=== PATIENT | male | born 1985 | race Caucasian/White ===

== ENCOUNTER 2023-12-11 17:18 | Inpatient (IN) | payer MEDICARE, MEDICAID, SELFPAY ==
[2023-12-11 18:06] VITALS: BP 132/79; PULSE 88; RESP 20; TEMP 37.1; O2SAT 98
[2023-12-11 18:07] VITALS: BMI 35.7
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
[2023-12-11 20:00] VITALS: BP 129/88; PULSE 92; TEMP 37.2; O2SAT 95
[2023-12-12 08:00] VITALS: BP 149/73; PULSE 89; RESP 16; TEMP 36.1; O2SAT 97
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
[2023-12-12 20:00] VITALS: BP 134/82; PULSE 76; RESP 18; TEMP 36.9; O2SAT 97
[2023-12-12] MEDS: Benztropine Mesylate 0.5 MG TABLET PO (21:11)
[2023-12-12] MEDS: Clotrimazole 1 % Cream 15 GM TUBE 1 APPL TOPICAL (21:12)
[2023-12-13 09:03] VITALS: BP 132/80; PULSE 76; RESP 19; TEMP 36.2; O2SAT 97
[2023-12-13] MEDS: hydrOXYzine HCL 25 MG TABLET PO ×2 (09:35→20:23)
[2023-12-13] MEDS: Benztropine Mesylate 0.5 MG TABLET PO ×2 (09:35→20:23)
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
--- NOTE | 2023-12-13 17:54 | PC.NURSE ---
Pt choosing to remain in group room A for most of shift. Remains quiet and isolating, has not made any requests to staff and remains calm and cooperative.
[2023-12-13 19:57] VITALS: BP 138/73; PULSE 82; RESP 17; TEMP 36.9; O2SAT 99
[2023-12-13] MEDS: Trifluoperazine HCL 5 MG TABLET 20 MG PO (20:23)
[2023-12-14 08:00] VITALS: BP 132/81; PULSE 84; RESP 16; TEMP 36.4; O2SAT 99
[2023-12-14] MEDS: Benztropine Mesylate 0.5 MG TABLET PO ×2 (10:44→22:00)
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
[2023-12-14 20:00] VITALS: BP 122/86; PULSE 75; TEMP 36.5; O2SAT 98
[2023-12-14] MEDS: Trifluoperazine HCL 5 MG TABLET 20 MG PO (21:59)
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
[2023-12-15 08:00] VITALS: BP 152/84; PULSE 83; RESP 16; TEMP 36.3; O2SAT 98
[2023-12-15] MEDS: Benztropine Mesylate 0.5 MG TABLET PO ×2 (12:15→21:17)
[2023-12-15] MEDS: Trifluoperazine HCL 5 MG TABLET 20 MG PO (21:16)
[2023-12-15 21:20] VITALS: BP 114/74; PULSE 75; TEMP 36.1
[2023-12-16 08:00] VITALS: BP 147/98; PULSE 79; RESP 18; TEMP 36.8; O2SAT 98
[2023-12-16] MEDS: Benztropine Mesylate 0.5 MG TABLET PO ×2 (09:56→21:19)
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
[2023-12-16 20:00] VITALS: BP 131/79; PULSE 81; RESP 16; TEMP 36.7; O2SAT 98
[2023-12-16] MEDS: Trifluoperazine HCL 5 MG TABLET 20 MG PO (21:19)
[2023-12-16] MEDS: Clotrimazole 1 % Cream 15 GM TUBE 1 APPL TOPICAL (23:24)
[2023-12-17] MEDS: Benztropine Mesylate 0.5 MG TABLET PO ×2 (08:40→21:42)
[2023-12-17] MEDS: Clotrimazole 1 % Cream 15 GM TUBE 1 APPL TOPICAL (08:40)
[2023-12-17 09:46] VITALS: BP 136/82; PULSE 76; RESP 16; TEMP 36.4; O2SAT 97
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
[2023-12-17 20:00] VITALS: BP 133/79; PULSE 80; RESP 20; TEMP 35.9; O2SAT 98
[2023-12-17] MEDS: Trifluoperazine HCL 5 MG TABLET 20 MG PO (21:42)
[2023-12-18] MEDS: Benztropine Mesylate 0.5 MG TABLET PO ×2 (08:19→20:36)
[2023-12-18] MEDS: Clotrimazole 1 % Cream 15 GM TUBE 1 APPL TOPICAL (08:20)
[2023-12-18 08:45] VITALS: BP 117/74; PULSE 82; RESP 18; TEMP 36.4; O2SAT 97
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
[2023-12-18 20:00] VITALS: BP 132/86; PULSE 98; RESP 18; TEMP 36.3; O2SAT 97
[2023-12-18] MEDS: Trifluoperazine HCL 5 MG TABLET 20 MG PO (20:36)
[2023-12-19 08:00] VITALS: BP 119/75; PULSE 81; TEMP 36.8; O2SAT 98
[2023-12-19] MEDS: Benztropine Mesylate 0.5 MG TABLET PO ×2 (08:55→21:16)
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
[2023-12-19 20:00] VITALS: BP 124/79; PULSE 87; RESP 16; TEMP 36.7; O2SAT 96
[2023-12-19] MEDS: Clotrimazole 1 % Cream 15 GM TUBE 1 APPL TOPICAL (21:16)
[2023-12-19] MEDS: Trifluoperazine HCL 5 MG TABLET 20 MG PO (21:16)
[2023-12-20 08:00] VITALS: BP 141/87; PULSE 86; RESP 18; TEMP 37.1; O2SAT 98
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
[2023-12-20] MEDS: Benztropine Mesylate 0.5 MG TABLET PO (09:15)
== END 2023-12-20 11:09 | disposition home or self-care (01) | DRG 885 ==
PROVIDERS: Admitting Provider Psychiatry & Neurology Psychiatry; Visit Provider Psychiatry & Neurology Psychiatry
DX: F20.9 Schizophrenia, unspecified (principal); H54.61 Unqualified visual loss, right eye, normal vision left eye; B35.3 Tinea pedis; Z79.899 Other long term (current) drug therapy

== ENCOUNTER → 2023-12-11 17:18 | Outpatient (BNV) | payer MEDICAID, SELFPAY | PROVIDERS: Admitting Provider Psychiatry & Neurology Psychiatry; Visit Provider Physician Assistant | DX: Z00.00 Encounter for general adult medical examination without abnormal findings (principal) | CPT/HCPCS: 99222 ==

== ENCOUNTER → 2023-12-11 17:18 | Outpatient (BNV) | payer MEDICARE, MEDICAID, SELFPAY | PROVIDERS: Admitting Provider Psychiatry & Neurology Psychiatry; Visit Provider Psychiatry & Neurology Psychiatry | DX: F20.9 Schizophrenia, unspecified (principal); H54.7 Unspecified visual loss | CPT/HCPCS: 90792; 99231; 99232; 99239 ==

== ENCOUNTER 2025-02-16 16:34 | Inpatient (IN) | payer MEDICARE, MEDICAID, SELFPAY ==
--- OUTSIDE RECORDS SUMMARY | 2017-03-29 08:00 | XMS_ITS | Continuity of Care Document ---
Author Organization [facility] Address [address] [place] [id number] Phone Care Team Providers Care Machine Ii Trimmer Name Role Phone RenettaErik simons OD Unavailable Unavailable Procedures Procedure Date SCODI--Optic Nerve Computerized Corneal Topography 016 Advance Directives Directive Yes / No Effective Date File Name No Information Encounters Encounter Description Practice Location Reason(s) For Visit Diagnoses Date Provider Providers Copied on Encounter [facility], [address] [place] [address], [facility], tel:[phone] No Information 0 7-201 7 Renettaronak Valencia. [address] [place] [address], [id number] , . tel: [phone] Referring Provider: Gm Sanchez, [address] [place] [address], [id number] . tel:[phone] [facility], [address] [place] [address], [facility], tel:[phone] [address] [place] [address] No Information 6-201 7 Abimael Conner. [address] [place] [address], [id number] , . tel: [phone] Referring Provider: Gm Sanchez, [address] [place] [address], [id number] . tel:[phone] [facility], [address] [place] [address], [facility], tel:[phone] [place] [address] No Information 6 Abimael Conner. [facility] [place], [place], [id number] , [place]. tel: [phone] Referring Provider: Gm Sanchez, [facility] [place], [address] . tel:[phone] Family History Family Member Type Diagnosis Age At Onset No Information Payers Payer name Insurance type Covered constitution party ID Authoriza tion(s) No Information Social History Type Description Quantity Date Captured Comments Sex Male Smoking Status No Information Chief Complaint And Reason For Visit No Information Reason For Referral Reason For Referral No Information History Of Present Illness Encounter Date Complaint History Of Prese nt Illness No Information Functional Status Date Functional Assessmen t No Information Instructions Date Instruction Additional Infor mation No Information Assessments Type Assessment Date No Information Patient Care Teams Name Effective Dates (start - stop) Status Members No Information
--- NOTE | 2025-02-16 | ECG_ITS ---
Test Reason : dizziness Blood Pressure : */* mmHG Vent. Rate : 100 BPM Atrial Rate : 100 BPM P-R Int : 168 ms QRS Dur : 90 ms QT Int : 328 ms P-R-T Axes : 57 69 32 degrees QTcB Int : 423 ms Normal sinus rhythm Possible Left atrial enlargement Borderline ECG No previous ECGs available Referred By: Generic ED Physician Electronically Signed By: SHAQUILLE GRAHAM MD
--- NOTE | ~2025-02-16 | CT_ITS ---
CLINICAL HISTORY: new renal failure CT abdomen and pelvis without contrast Comparison: None provided Findings: Diffuse esophageal mural thickening, nonspecific. Hepatomegaly with steatosis Lobulated enhancing lesion in the posterior right lobe of the liver measuring 5.2 cm, may reflect a hemangioma. If clinical concern persists consider follow-up MRI. Nonobstructive less than 2 mm calculus left lower pole kidney. Distended stomach. No bowel obstruction or pneumoperitoneum. Central mesenteric fat stranding with prominent lymph nodes, suggestive of mesenteric panniculitis. Scattered colonic diverticulosis without diverticulitis or colitis. Normal appendix. Bladder is decompressed with mural thickening, nonspecific. Partially imaged subacute appearing right-sided rib fractures, should be correlated clinically. IMPRESSION: 1. Possible mesenteric panniculitis. 2. Partially imaged subacute appearing right-sided rib fractures, should be correlated clinically. 3. Nonobstructive less than 2 mm calculus left lower pole kidney. This document has been electronically signed by: Joey Sarmiento MD on 02/16/2025 19:20:55
--- NOTE | ~2025-02-16 | XR_ITS ---
CLINICAL HISTORY: sob 1 view chest x-ray Comparison: None provided Findings: The lungs are clear. Prominent cardiac silhouette. No acute fracture. IMPRESSION: 1. No acute findings. This document has been electronically signed by: Joey Sarmiento MD on 02/16/2025 20:59:45
[2025-02-16 16:40] VITALS: BP 108/80; PULSE 105; O2SAT 98
[2025-02-16 16:42] VITALS: BP 109/69; PULSE 98; RESP 18; TEMP 36.7; O2SAT 99; BMI 33.9
[2025-02-16 17:05] LABS: MANUAL DIFF FLAG NO
[2025-02-16 17:08] LABS: Hematocrit 48.5 % (42.0-52.0); Hemoglobin 16.9 g/dl (14.0-18.0); Imm Gran Abs Auto 0.23 X10*3/uL (0.00-0.03); Imm Gran Pct Auto 1.2 % (0.0-0.4); Lymphocytes Absolute Auto 2.4 X10*3/uL (1.2-4.9); Mean Corpuscular HGB Conc 34.8 g/dl (31.0-36.0); Mean Corpuscular Hemoglobin 29.8 pg (27.0-33.0); Mean Corpuscular Volume 85.4 fL (80.0-98.0); NRBC Abs Auto 0.000 X10*3/uL (0.0-0.012); NRBC Pct Auto 0.0 /100WBC (0.0-0.2); Platelet Count 247 X10*3/uL (160-400); Red Blood Count 5.68 X10*6/uL (4.60-5.80); White Blood Count 19.3 X10*3/uL (4.8-10.8)
--- NOTE | 2025-02-16 17:18 | ED.DIZZY ---
HPI - Dizziness General Chief Complaint: Dizziness Stated Complaint: HEAT EXHAUSTION Time Seen by Provider: 02/16/25 17:18 Source: patient and EMS Mode of arrival: ambulatory Limitations: no limitations History of Present Illness ED Provider: HPI Narrative: 39-year-old male who lives with his father, prior history for schizophrenia, presenting from home with reports of multiple symptoms, he states that he has been sleeping well for the past 3 weeks, has been having leg cramping, and decided to take a long walk and he states he walked into [facility] and passed out because he was just exhausted, apparently he was found on the ground at [facility] where he laid down complaining of dizziness. Patient states he has been having right upper quadrant abdominal pain for weeks, spasms for weeks, denies drug or alcohol use. He states he does have psychiatric medications but does not sound like he takes them on a regular basis, no SI or HI. He is cooperative. He also mentioned that he has had hallucinations, and feels restless and has not been able to sleep Related Data Previous Rx's ?Medication ?Instructions ?Recorded benztropine 0.5 mg tablet 0.5 mg PO BID 90 days #180 tabs 12/19/23 clotrimazole 1 % topical cream 1 appl topical BID 30 days #30 12/19/23 grams rosuvastatin 10 mg tablet 10 mg PO BEDTIME 90 days #90 tabs 12/19/23 trifluoperazine 10 mg tablet 20 mg (2 x 10 mg) PO BEDTIME 90 12/19/23 days #180 tabs Allergies Allergy/AdvReac Type Severity Reaction Status Date / Time No Known Allergies Allergy Verified 02/16/25 16:52 Review of Systems Constitutional: Constitutional: Reports as per [facility] Past Medical History Medical History Schizophrenia Blindness Blindness Social History Social History Household Members: None Housing: House Do you presently have visiting nurse or other home services: No Patient Tobacco Use Status: Never used Tobacco Tobacco use type: Cigarette e-Cigarette/Vaping Use: Never Used Advance Directives: No Advance Directives Information Provided: No service: No Sexual orientation: Straight/Heterosexual Physical Exam Exam: Exam: Gen: ?Overall well-appearing patient, sweaty, no trauma, no bruising HEENT: Reports being blind to right eye without obvious deformity Neck: Supple, no LAD CV: RRR, no obvious murmurs appreciated Resp: ?No wheezing rales rhonchi no stridor moving air well Abd: ?Bowel sounds are present, no tenderness no rebound no rigidity MSK: FROM, strength 5/5 all extremities Skin: Warm, dry, intact, Neuro: ?Alert and oriented x3, moving upper and lower extremities symmetrically, no obvious facial asymmetry noted Psych: No SI or HI, was cooperative during our discussion Vital Signs: Vital Signs: Last Vital Signs Temp 98.1 F 02/16/25 16:42 Pulse 92 02/16/25 18:05 Resp 18 02/16/25 18:05 BP 101/63 02/16/25 18:05 Pulse Ox 97 02/16/25 18:05 O2 Del Method Room Air 02/16/25 18:05 BMI result Body Mass Index 33.9 Medications Administered Discontinued Medications Generic Name Dose Route Start Last Admin Trade Name Colleen PRN Reason Stop Dose Admin Diazepam 4 mg 02/16/25 17:20 02/16/25 18:05 Diazepam 10 Mg/2 Ml Cartridge IVPUSH 02/16/25 17:21 4 mg STAT STA Administration Sodium Chloride 1,000 mls @ 999 mls/hr 02/16/25 17:30 02/16/25 18:04 Ns IV 02/16/25 18:30 999 mls/hr .Q1H1M JAYLEN Administration Ondansetron HCl 4 mg 02/16/25 17:20 02/16/25 18:05 Ondansetron Hcl 4 Mg/2 Ml Vial IVPUSH 02/16/25 17:21 4 mg ONCE ONE Administration Medical Decision Making Medical Decision Making MDM Narrative: Patient is presenting with nonspecific findings for weeks, he also decided to walk either to the hospital to a pharmacy but he made it down to [facility] and then he states that he felt so dizzy he either passed out or laying on the ground, he reports that he has been having difficulty sleeping, reported hallucinations, somewhat restless but he is conversational and cooperative. Because he has had history of psychiatric issues, reported hallucinations, we will ask crisis to evaluate him 17:57 patient has new renal failure, we will obtain imaging to make sure it is not post renal obstruction but likely dehydration and we will evaluate for rhabdomyolysis, his LFTs trop, alk phos I believe is slightly elevated which is likely a reflection of heat exhaustion including leukocytosis. He is otherwise nonfebrile. 19:50 I spoke to the patient he is feeling better, discussed with himHis workup and admission he is agreeable to the plan. Differential Diagnosis Differential Diagnoses: The differential diagnosis associated with the presentation includes (Pancreatitis, cholecystitis, hepatitis, alcohol intoxication, psychiatric issues) Admission/Observation Consideration of admission/observation: Escalation of care including admission/observation considered 2022 Emergency Medicine Coding Guide from [employer] on 02/16/2025 All calculations should be rechecked by clinician prior to use RESULT SUMMARY: 5 Estimated Level of Service Problems: Moderate (4) Risk: High (5) Data: Extensive (5) NARRATIVE MDM: This patient's problem complexity is Moderate as patient: has a new undiagnosed problem with uncertain prognosis but that could be serious. This patient's risk is High due to: overall presentation requiring evaluation for a potentially High-risk process. This patient's data complexity is Extensive due to: -multiple tests ordered/reviewed -independent interpretation of imaging or EKG INPUTS: Number and Complexity ?> 5 = 4: undiagnosed new problem, uncertain outcome (e) Risk level ?> 4 = High Tests ordered ?> 3 = >= Tests results reviewed (excluding labs) ?> 2 = 2 Prior external notes reviewed ?> 0 = 0 Assessment requiring and independent historian ?> 0 = No Independent interpretation of tests ?> 1 = Yes Discussed management/test interpretation w/external professional ?> 0 = No Lab Data MDM Lab Attestation statement: I reviewed the patient's lab results. 02/16/25 17:01 02/16/25 17:01 Labs: Lab Results 02/16/25 Range/Units 17:01 WBC 19.3 H (4.8-10.8) X10*3/uL RBC 5.68 (4.60-5.80) X10*6/uL Hgb 16.9 (14.0-18.0) g/dl Hct 48.5 (42.0-52.0) % MCV 85.4 (80.0-98.0) fL MCH 29.8 (27.0-33.0) pg MCHC 34.8 (31.0-36.0) g/dl RDW 12.7 (11.0-16.0) % Plt Count 247 (160-400) X10*3/uL MPV 10.6 (9.4-12.4) fL Immature Gran % (Auto) 1.2 H (0.0-0.4) % Neut % (Auto) 78.0 H (45-73) % Lymph % (Auto) 12.2 L (20-40) % Mcculloch % (Auto) 7.6 (2-11) % Eos % (Auto) 0.5 (0-4) % Baso % (Auto) 0.5 (0-2) % Lymph # (Auto) 2.4 (1.2-4.9) X10*3/uL Mcculloch # (Auto) 1.5 H (0.1-1.2) X10*3/uL Eos # (Auto) 0.1 (0.0-0.4) X10*3/uL Baso # (Auto) 0.1 (0.0-0.2) X10*3/uL Abs Immat Gran (auto) 0.23 H (0.00-0.03) X10*3/uL Absolute Neuts (auto) 15.1 H (2.0-8.3) x10*3/uL Absolute Nucleated RBC 0.000 (0.0-0.012) X10*3/uL Nucleated RBC % (auto) 0.0 (0.0-0.2) /100WBC Sodium 138 (135-145) mmol/L Potassium 5.3 H (3.3-5.1) mmol/L Chloride 103 (96-108) mmol/L Carbon Dioxide 22 (22-29) mmol/L Anion Gap 18 (12-20) BUN 16 (9-16) mg/dL Creatinine 2.42 H (0.5-1.4) mg/dL Estim Creat Clear Calc 52.7 Estimated GFR 30 Random Glucose 149 H (60-115) mg/dL Calcium 10.5 H (8.4-10.2) mg/dL Magnesium 2.3 (1.6-2.6) mg/dL Total Bilirubin 0.5 (0.0-1.0) mg/dL AST 53 H (5-37) U/L ALT 92 H (0-40) U/L Alkaline Phosphatase 133 H (39-117) U/L Total Creatine Kinase 1041 H (38-174) U/L Troponin I High Sens 43.5 H (<3.5-35.0) ng/L Total Protein 8.1 H (6.5-8.0) g/dL Albumin 5.2 H (3.5-5.0) g/dL Ethyl Alcohol < 10 mg/dL Independent Interpretation I performed an independent interpretation of an: EKG (100 beats per minute otherwise normal ECG without dysrhythmia, AV juan ramon blocks or ST-T changes to suspect underlying ACS, my independent interpretation) Critical Care Time Critical Care Time Critical Care Time: Yes Total Critical Care Time: 45 Attestation: Time is exclusive of separately billable procedures. Time includes: direct patient care, patient reassessment, coordination of patient care, interpretation of data (laboratory data, pulse oximetry, arterial blood gases and chest xrays), review of patient's medical records, medical consultation and documentation of patient care. Procedures excluded from critical care time: central intravenous line placement and electrocardiography. Discharge Plan Discharge Clinical Impression: Rhabdomyolysis, Heat exhaustion, Schizophrenia Patient Disposition: Admitted As Inpatient Print Language: Iranian
[2025-02-16 17:21] LABS: Alanine Aminotransferase 92 U/L (0-40); Albumin Level 5.2 g/dL (3.5-5.0); Alkaline Phosphatase 133 U/L (39-117); Anion Gap 18 (12-20); Aspartate Amino Transferase 53 U/L (5-37); Blood Urea Nitrogen 16 mg/dL (9-16); Calcium 10.5 mg/dL (8.4-10.2); Carbon Dioxide 22 mmol/L (22-29); Chloride 103 mmol/L (96-108); Creatinine Clr Calc Pharmacy 52.7; Estimated Glomerular Filt Rate 30; Potassium 5.3 mmol/L (3.3-5.1); Sodium 138 mmol/L (135-145); Total Protein 8.1 g/dL (6.5-8.0)
[2025-02-16 17:27] LABS: Troponin-I High Sensitivity 43.5 ng/L (<3.5-35.0)
[2025-02-16 18:05] VITALS: BP 101/63; PULSE 92; RESP 18; O2SAT 97
[2025-02-16] MEDS: diazePAM 10 MG/2 ML CARTRIDGE 4 MG IVPUSH (18:05)
[2025-02-16 18:17] LABS: Magnesium 2.3 mg/dL (1.6-2.6)
--- NOTE | 2025-02-16 19:08 | PC.NURSE ---
Pt coming in with EMS reporting dizziness, on arrival pt did not complain of dizziness, pt is very manic in behavior, very animated with conversation and all over the place. He is A/Ox4, reporting he has not taken any medications in a long time and reports I think I am suppose to be on some Pt given IVF/valium to help with anxiety, pt placed on monitor, IV placed. Pt brought to CT. Pt requesting ice water nonstop at this time. Awaiting results and imaging for dispo plan. Pt aware we still need a urine at this time.
--- NOTE | 2025-02-16 19:11 | PC.NURSE ---
this rn assumed care of pt, pt resting in stretcher, no acute distress noted, pt offers no complaints at this time, fluids continue to administer at this time
--- OUTSIDE RECORDS SUMMARY | 2025-02-16 19:29 | XMS_ITS | Clinical Summary ---
Author Organization [facility] Address [address] [place] [address] Care Team Providers Care Network Program Manager Name Role Phone Gabby Garcia PA-C Primary Care Provider Source Comments PLEASE NOTE, if this patient is a minor, it may be UNLAWFUL to discuss sensitive information that is contained in these records (such as FAMILY PLANNING, MENTAL HEALTH or SUBSTANCE ABUSE) with the minor patient's parent or other person without the patient's specific authorization.[facility] Allergies No known active allergies Medications benztropine (COGENTIN) 0.5 mg tabletIndications: Routine general medical examination at a health care facility,Non morbid obesity,Undifferen tiated schizophrenia ([facility]),Elevated LFTs,Lower urinary tract symptoms (LUTS) Take 1 Tablet by mouth 2 (two) times daily 180 Tablet 3 4 Active trifluoperazine (STELAZINE) 10 mg tabletIndications: Routine general medical examination at a health care facility,Non morbid obesity,Undifferen tiated schizophrenia ([facility]),Elevated LFTs,Lower urinary tract symptoms (LUTS) Take 2 Tablets by mouth nightly at bedtime 180 Tablet 3 4 Active rosuvastatin (CRESTOR) 10 mg tablet Take 1 Tablet by mouth nightly at bedtime 90 Tablet 1 4 Active Active Problems Problem Noted Date Diagnosed Date Non morbid obesity 11/24/2019 Schizophrenia ([facility]) 08/22/2016 Social History Tobacco Use Types Packs/Day Years Used Date Smoking Tobacco: Never Smokeless Tobacco: Never Alcohol Use Standard Drinks/Week Comments No 0 (1 standard drink = 0.6 oz pur e alcohol) Social Connections Answer Date Recorded Connectedness 0 04/09/2024 Financial Resource Strain Answer Date R ecorded Financial Resource Strain 0 2018 Stress Answer Date Recorded Stress 0 03/15/2019 Physical Activity Answer Date Recorded Physical Activity 0 03/15/2019 Food Insecurity Answer Date Recorded Food 0 04/17/2024 Transportation Needs Answer Date Record ed Transportation 0 03/15/2019 Housing Stability Answer Date Recorded Housing 0 03/15/2019 Safety and Environment Answer Date Marino rded Safety 0 03/15/2019 Utilities Answer Date Recorded Utilities 0 03/15/2019 Employment Answer Date Recorded Stress 0 04/09/2024 Sex and Gender Information Value Date Recorded Sex Assigned at Male 09/06/2017 11:08 AM PST Legal Sex Male 11:36 AM PDT Gender Identity Male 09/06/2017 11:08 AM PST Sexual Orientation Straight 09/06/2017 11 :08 AM PST Last Filed Vital Signs Vital Sign Reading Time Taken Comments Blood Pressure 118/80 10/09/2023 2:51 PM EDT Pulse 106 10/09/2023 2:51 PM EDT Temperature 36.8 C (98.2 F) 10/09/2023 2:51 PM EDT Respiratory Rate 18 10/09/2023 2:51 PM EDT Oxygen Saturation 98% 10/09/2023 2:51 PM EDT Inhaled Oxygen Concentration - - Weight 127.9 kg (282 lb) 10/09/2023 2:51 PM EDT Height 188 cm (6' 2.02 ) 10/09/2023 2:51 PM EDT Body Mass Index 36.19 10/09/2023 2:51 PM EDT Plan of Treatment Health Maintenance Due Date Last Done Comments Anxiety Screening 1984 Tobacco Screening 1984 Medicare Annual Wellness Visit 2002 Imm-DTaP/Tdap/Td (1 - Tdap) 2003 [id number] () 03/23/2024 022, 06/14/2022 Alcohol and Drug Screen 07/23/2024 10/14/2018, 08/22 Depression Annual Screen 07/23/2024 10/14/2018 Diabetes Screening 10/08/2024 10/09/2023, 0 10/14/2018, 09/05/2017, Additional history exists Hypertension Screening (#1) 10/08/2024 Lipid Screening 10/08/2024 10/09/2023, 08/22/2016 Imm-Influenza (#1) 2025 HIV Screening Completed 10/14/2018 Hepatitis C Screening Completed 10/14/2018 Imm-Hepatitis B Discontinued Procedures Procedure Name Priority Date/Time Associated Diagnosis Comments COMPREHENSIVE METABOLIC PANEL Routine 10/09/2023 3:20 PM EDT Routine general medical examination at a health care facility Non morbid obesity Undifferentiated schizophrenia (HCC-CMS) Elevated LFTs Lower urinary tract symptoms (LUTS) LIPID PANEL Routine 10/09/2023 3:20 PM EDT Routine general medical examination at a health care facility Non morbid obesity Undifferentiated schizophrenia (HCC-CMS) Elevated LFTs Lower urinary tract symptoms (LUTS) ANTIBODY HIV-1&HIV-2 SINGLE RESULT Routine 10/14/2018 9:35 AM EDT Routine general medical examination at a health care facility Long-term use of high-risk medication HEPATITIS A,B,C PANEL Routine 10/14/2018 9:35 AM EDT Routine general medical examination at a health care facility Long-term use of high-risk medication from Last 3 Months or Most Recently Relevant to Health Maintenance Results * (ABNORMAL) LIPID PANEL (10/09/2023 3:20 PM EDT) CHOLESTEROL, TOTAL 223(H) <200 mg/dL [facility] HDL CHOLESTEROL 33(L) > OR = 40 mg/dL [facility] TRIGLYCERIDES 598(H) <150 mg/dL [facility] Comment: If a non-fasting specimen was collected, consider repeat triglyceride testing on a fasting specimen if clinically indicated. Valdivia et al. J. of Clin. Lipidol. 2015;9:129-169. There is increased risk of pancreatitis when the triglyceride concentration is very high (> or = 500 mg/dL, especially if > or = 1000 mg/dL). Shea et al. J. of Clin. Lipidol. 2015;9:129-169. LDL-CHOLESTEROL See Note [facility] Comment: LDL cholesterol not calculated. Triglyceride levels greater than 400 mg/dL invalidate calculated LDL results. Reference range: <100 Desirable range <100 mg/dL for primary prevention; <70 mg/dL for patients with CHD or diabetic patients with > or = 2 CHD risk factors. LDL-C is now calculated using the Ilia calculation, which is a validated novel method providing better accuracy than the Friedewald equation in the estimation of LDL-C. Isac HOPKINS et al. KELSEY. 2013;310(19): 9606-7404 (http://education.[employer]/faq/ZAW750) CHOL/HDLC RATIO 6.8(H) <5.0 (calc) [facility] NON-HDL CHOLESTEROL 190(H) <130 mg/dL (calc) [facility] Comment: For patients with diabetes plus 1 major ASCVD risk factor, treating to a non-HDL-C goal of <100 mg/dL (LDL-C of <70 mg/dL) is considered a therapeutic option. Blood Blood / Unknown 10/09/2023 3 :20 PM EDT 10/09/2023 3:20 PM EDT Narrative [facility] - 10/11/2023 4:59 AM EDT FASTING:NO us Gabby Garcia PA-C LAB - BLOOD DRAW Final Resul t [facility] [address] [place] [address], [facility] [address] [place] [phone] * (ABNORMAL) COMPREHENSIVE METABOLIC PANEL (10/09/2023 3:20 PM EDT) GLUCOSE 141(H) 65 - 139 mg/dL [facility] Comment: Non-fasting reference interval UREA NITROGEN (BUN) 15 7 - 25 mg/dL [facility] CREATININE (blood) 1.04 0.60 - 1.26 mg/dL [facility] EGFR 94 > OR = 60 mL/min/1. 73m2 [facility] BUN/CREATININE RATIO SEE NOTE: [facility] Comment: Not Reported: BUN and Creatinine are within reference range. SODIUM 136 135 - 146 mmol/L [facility] POTASSIUM 4.7 3.5 - 5.3 mmol/L [facility] CHLORIDE 102 98 - 110 mmol/L [facility] CARBON DIOXIDE 26 20 - 32 mmol/L [facility] CALCIUM 9.8 8.6 - 10.3 mg/dL [employer] [facility] PROTEIN, TOTAL 6.8 6.1 - 8.1 g/dL [facility] ALBUMIN 4.7 3.6 - 5.1 g/dL [facility] GLOBULIN 2.1 1.9 - 3.7 g/dL (calc) [facility] ALBUMIN/GLOBULI N RATIO 2.2 1.0 - 2.5 (calc) [facility] BILIRUBIN, TOTAL 0.3 0.2 - 1.2 mg/dL [facility] ALKALINE PHOSPHATASE 77 36 - 130 U/L [facility] AST 26 10 - 40 U/L [facility] ALT 53(H) 9 - 46 U/L [facility] Blood Blood / Unknown 10/09/2023 3 :20 PM EDT 10/09/2023 3:20 PM EDT Narrative [facility] - 10/11/2023 4:59 AM EDT FASTING:NO us Gabby Garcia PA-C LAB - BLOOD DRAW Edited Resu lt - Final [facility] [address] [address], [facility] [address] [phone] * (ABNORMAL) HEPATITIS A,B,C PANEL (10/14/2018 9:35 AM EDT) HEPATITIS B SURFACE ANTIBODY POSITIVE(A) NEGATIVE [facility] HEPATITIS B SURFACE ANTIGEN NEGATIVE NEGATIVE [facility] Comment: Over the counter supplements containing high doses of biotin may interfere with this assay. If interference is suspected, patients shoud be retested after refraining from biotin supplements for 72 hours. HEPATITIS C VIRUS DIAGNOSTIC NEGATIVE NEGATIVE [facility] HEPATITIS A ANTIBODY TOTAL POSITIVE(A) NEGATIVE [facility] Comment: Over the counter supplements containing high doses of biotin may interfere with this assay. If interference is suspected, patients shoud be retested after refraining from biotin supplements for 72 hours. HEPATITIS B CORE ANTIBODY NEGATIVE NEGATIVE [facility] Blood specimen (specimen) Blood / Unknown 10/14/2018 9:35 AM EDT 10/14/2018 10:34 AM EDT [facility] - 10/14/2018 12:58 PM EDT [facility], a member of [address] [address] Publications Editor - Sobia Rodriguez MD [place] ID [id number] ORD# [id number] Gabby Garcia PA-C LAB - BLOOD DRAW Edited Resu lt - Final [address] [address], [place] [phone] * HIV-1 & HIV-2 ANTIBODIES (10/14/2018 9:35 AM EDT) [facility] Signature HIV 1 AND 2 ANTIBODY SCREEN NEGATIVE NEGATIVE [facility] Comment: This assay is a 4th generation assay allowing for earlier detection of HIV infection by detecting the presence of the HIV-1 p24 antigen as well as the traditional antibodies to HIV type 1 (including group O) and type 2. Use of a 4th generation assay is the current CDC recommendation for HIV screening. Blood specimen (specimen) Blood / Unknown 10/14/2018 9:35 AM EDT 10/14/2018 10:34 AM EDT [facility] - 10/14/2018 1:26 PM EDT [employer], a member of [address] [address] Publications Editor - Sobia Rodriguez MD [place] [id number] ORD# [id number] Gabby Garcia PA-C LAB - BLOOD DRAW Final Resul t [address] [address], [place] [phone] from Last 3 Months or Most Recently Relevant to Health Maintenance Insurance [place] MEDICAID Member Subscriber Plan / Payer (Ef fective 2016-Present) Name:Travis Silveira Relation to Subscriber:Self Name:Travis Silveira Payer ID:[id number] Group ID:Not on file Type:Medicaid Address: [address] [id number] MEDICARE - [place] Care Teams Network Program Manager Relationship Specialty Start Date End Date Gabby Garcia PA-C [address] [place] [phone] PCP - General Internal Medicine 02/05/23
[2025-02-16] MEDS: Dextrose 5 % and 0.45 % NaCl 1,000 ML 100 ML IVCONT (20:40)
[2025-02-16 20:42] VITALS: BP 132/80; PULSE 88; RESP 16; TEMP 36.9; O2SAT 96
--- NOTE | 2025-02-16 21:31 | PHA.MEDREC ---
Addendum entered by Sera Sims [facility] 02/16/25 21:38: REVIEWED BY PHARMACIST Original Note: Pharmacy Consult ? Medication Reconciliation Pharmacy has completed the medication reconciliation. Spoke with pt and he confirmed he is here tonight because he was taking Benztropine and Trifloperaz tablets but states he ran out of them about 1 week ago and has not been able to get them refilled so he came here to get them.
[2025-02-16 22:15] LABS: Anion Gap 16 (12-20); Blood Urea Nitrogen 18 mg/dL (9-16); Carbon Dioxide 23 mmol/L (22-29); Chloride 103 mmol/L (96-108); Creatinine Clr Calc Pharmacy 71.3; Estimated Glomerular Filt Rate 42; Potassium 4.9 mmol/L (3.3-5.1); Sodium 137 mmol/L (135-145)
[2025-02-16 22:22] LABS: Calcium 9.4 mg/dL (8.4-10.2)
[2025-02-16 22:23] LABS: Troponin-I High Sensitivity 19.8 ng/L (<3.5-35.0)
--- NOTE | 2025-02-16 23:34 | PM.IMHP ---
History of Present Illness Date of Service: 02/16/25 Attending physician on admission: Candido Moy Chief Complaint: dizziness Patient is a 39-year-old male with a past history significant for schizophrenia, who presented to the ED after being found on the ground at [facility]. The patient reports that he was feeling dizzy and lie down on the ground and was very agitated. He feels that he may have had heat exhaustion. He states he did not fall or lose consciousness or have a head strike. 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 He reports that the latter started to twist and he feels sideways down on his right side of his chest onto the ladder. He has had pain since and has been taking ibuprofen for this. He currently denies any chest pain, shortness of breath, nausea, vomiting, abdominal pain or urinary symptoms. He is feeling better since arriving to the ED and receiving IV fluids. Review of Systems Constitutional: Constitutional: Denies chills, Denies fatigue, Denies fever(s) and Denies headache(s) Eyes: Eyes: Denies change in vision ENT: Denies headache(s), Denies nasal congestion and Denies sore throat Cardiovascular: Cardiovascular: Denies chest pain, Denies rapid heart rate, Denies leg edema, Denies lightheadedness and Denies dyspnea Respiratory: Respiratory: Denies chest congestion, Denies cough, Denies dyspnea and Denies wheezing Gastrointestinal: Gastrointestinal: Denies abdominal pain, Denies diarrhea, Denies nausea and Denies vomiting Genitourinary: Genitourinary: Denies hematuria, Denies dysuria, Denies urinary frequency and Denies urinary urgency Musculoskeletal: Musculoskeletal: Denies myalgias Integumentary/Breasts: Skin/Breast: Denies rash Neurologic: Denies confusion and Denies headache(s) Psychiatric: Psychiatric: Denies confusion Endocrine: Endocrine: Denies fatigue Hematologic/Lymphatic: Hematologic/Lymphatic: Denies easy bleeding and Denies easy bruising Allergic/Immunologic: Allergic/Immunologic: Denies wheezing PMFSH Medical History Schizophrenia Blindness Blindness Functional capacity: independent ambulation Social History Household Members: None Housing: House Do you presently have visiting nurse or other home services: No Patient Tobacco Use Status: Never used Tobacco Tobacco use type: Cigarette e-Cigarette/Vaping Use: Never Used Advance Directives: No Advance Directives Information Provided: No Nutrition Risks: No Nutritional Risk service: No Sexual orientation: Straight/Heterosexual Narrative: no smoking, etoh or drug use Meds Allergies Allergy/AdvReac Type Severity Reaction Status Date / Time No Known Allergies Allergy Verified 02/16/25 16:52 Active Medications: Current Medications Acetaminophen (Acetaminophen 325 Mg Tablet) 650 mg PO Q6H PRN PRN Reason: Pain, Mild 1-3,fever,headache Benztropine Mesylate (Benztropine Mesylate 0.5 Mg Tablet) 0.5 mg PO BID [facility] Calcium Carbonate (Calcium Carbonate 750 Mg Tab.Chew) 750 mg PO Q4H PRN PRN Reason: Heartburn Enoxaparin Sodium (Enoxaparin Sodium 40 Mg/0.4 Ml Syringe) 40 mg SUBCUT Q24H [facility] Last Admin: 02/16/25 20:39 Dose: Not Given Lactated Ringer's (Lr) 1,000 mls @ 0 mls/hr IV .Q0M [facility] Dextrose/Sodium Chloride (D51/2ns) 1,000 mls @ 100 mls/hr IVCONT .Q10H [facility] Last Admin: 02/16/25 20:40 Dose: 100 mls/hr Magnesium Hydroxide (Milk Of Magnesia 30 Ml Oral.Susp) 30 ml PO DAILY PRN PRN Reason: Constipation Melatonin (Melatonin 3 Mg Tablet) 6 mg PO BEDTIME PRN PRN Reason: Insomnia Non-Formulary Medication (Trifluoperazine) 20 mg PO BEDTIME [facility] Oxycodone HCl (Oxycodone Hcl Immed Release 5 Mg Tablet) 5 mg PO Q6H PRN PRN Reason: Pain, Severe (Pain Scale 7-10) Sodium Chloride (0.9 % Sodium Chloride Flush 3 Ml Syringe) 3 ml IVFLUSH QSHIFT [facility] Physical Exam Vital Signs and Narrative: Vital Signs: Last Vital Signs Temp 98.4 F 02/16/25 20:42 Pulse 88 02/16/25 20:42 Resp 16 02/16/25 20:42 BP 132/80 02/16/25 20:42 Pulse Ox 96 02/16/25 20:42 O2 Del Method Room Air 02/16/25 20:42 BMI result Body Mass Index 33.9 General: AOx3, no acute distress Resp: CTA bilaterally CVS: S1, S2, RRR GI: +BS, NT, no distention Skin: Warm, dry Neuro: Cranial nerves II-XII grossly intact bilaterally. Motor grossly intact bilaterally Extremities: No LE edema Psych: Appropriate affect Const: General: No confusion Orientation/consciousness: No confusion Neuro: General: No confusion Results Labs 02/16/25 17:01 02/16/25 21:53 Labs: Laboratory Results - last 24 hr 02/16/25 02/16/25 17:01 21:53 MCV 85.4 MCH 29.8 MCHC 34.8 RDW 12.7 Plt Count 247 MPV 10.6 Immature Gran % (Auto) 1.2 H Neut % (Auto) 78.0 H Lymph % (Auto) 12.2 L Nance % (Auto) 7.6 Eos % (Auto) 0.5 Baso % (Auto) 0.5 Lymph # (Auto) 2.4 Nance # (Auto) 1.5 H Eos # (Auto) 0.1 Baso # (Auto) 0.1 Abs Immat Gran (auto) 0.23 H Absolute Neuts (auto) 15.1 H Absolute Nucleated RBC 0.000 Nucleated RBC % (auto) 0.0 Anion Gap 18 16 Estim Creat Clear Calc 52.7 71.3 Estimated GFR 30 42 Random Glucose 149 H 122 H Calcium 10.5 H 9.4 D Magnesium 2.3 Total Bilirubin 0.5 AST 53 H ALT 92 H Alkaline Phosphatase 133 H Total Creatine Kinase 1041 H Total Protein 8.1 H Albumin 5.2 H Ethyl Alcohol < 10 Assessment and Plan (1) Rhabdomyolysis: Qualifiers: Encounter type: initial encounter Status: Acute (2) FREIDA (acute kidney injury): Status: Acute (3) Rib fractures: Status: Acute (4) Elevated troponin: Status: Acute (5) Schizophrenia: Status: Acute (6) Class 1 obesity: Status: Acute Plan Patient is a 39-year-old male with a past history significant for schizophrenia, who presented to the ED after being found on the ground at [facility]. The patient reports that he was feeling dizzy and lie down on the ground and was very agitated. rhabdo/FREIDA - Cr 2.42 - CPK 1041 - WBC 19.3, vital stable, no infectious sx, reactive - CXR negative - A/P CT with possible mesenteric panniculitis. Personally images subacute appearing right-sided rib fractures - ibuprofen from rib fx's likely contributing to FREIDA as well as dehydration from working in the heat - received NS 1L in ED, continue D5 1/2NS 100 ml/hr - repeat BMP and CPK in AM rib fx's secondary to fall - pain management - CXR without pneumothorax elevated trop likely secondary to FREIDA/rhabdo - trop 43.5, 19.8 on repeat - EKG non-ischemic - echo - monitor on tele elevated LFTs - likely secondary to dehydration - hepatitis panel pending schizophrenia - does not appear to be unstable at this time - pt was agitated when found at [facility] - responsive to diazepam in ED - continue benztropine and trifluoperazine - care team/psych consults placed class 1 obesity - BMI 33.9 - weight loss encouraged full code VTE prophy: lovenox Pt with rhabdo, FREIDA and elevated troponin requiring admission for at least 2 midnights stay for IVF, and monitoring. Quality Stroke Does the patient have a stroke diagnosis?: No VTE Prior VTE?: No VTE Risk Level:: Medical - moderate - high VTE Device Contraindication: Treatment Not Indicated VTE Drug Contraindication: N/A - Med Ordered
[2025-02-17] VITALS (8 sets, daily range): BP systolic 116–148; BP diastolic 67–98; PULSE 66–87; RESP 14–18; TEMP 36.6–36.9; O2SAT 94–98; BMI 38.2
[2025-02-17 03:50] LABS: Alanine Aminotransferase 73 U/L (0-40); Albumin Level 4.3 g/dL (3.5-5.0); Alkaline Phosphatase 111 U/L (39-117); Anion Gap 13 (12-20); Aspartate Amino Transferase 69 U/L (5-37); Blood Urea Nitrogen 19 mg/dL (9-16); Calcium 8.8 mg/dL (8.4-10.2); Carbon Dioxide 23 mmol/L (22-29); Chloride 104 mmol/L (96-108); Creatinine Clr Calc Pharmacy 70.9; Estimated Glomerular Filt Rate 42; Magnesium 2.4 mg/dL (1.6-2.6); Potassium 3.8 mmol/L (3.3-5.1); Sodium 136 mmol/L (135-145); Total Protein 7.0 g/dL (6.5-8.0)
[2025-02-17 03:52] LABS: HBS Num1 9.82 mIU/mL (0-7.99); HBc Num1 0.09 S/CO (0.00-0.79); HBsAGNum1 0.40 S/CO (0.00-0.99); Hepatitis A Antibody IgM 0.32 Index (0-0.79); Hepatitis B Surface Antigen Negative (Negative); ~HepC Num1 0.09 S/CO (0.00-0.79); ~Hepatitis A Antibody IgM Nonreactive (Nonreactive); ~Hepatitis C Antibody Nonreactive (Nonreactive)
[2025-02-17 04:12] LABS: Thyroid Stimulating Hormone 2.25 uIU/mL (0.32-4.0)
[2025-02-17 04:31] LABS: HBS Num2 9.77 mIU/mL (0-7.99); HBS Num3 9.45 mIU/mL (0-7.99); ~Hepatitis B Surface Antibody GRAYZONE (Nonreactive)
--- NOTE | 2025-02-17 04:52 | PC.NURSE ---
pt awake and ambulatory to bathroom with steady gait, urine sample cup and instructions given to pt.
[2025-02-17 05:03] LABS: Appearance Urine Clear; Glucose Urine UA Negative (Negative); PH 5.5 (5.0-9.0); Specific Gravity - Urine 1.025 (1.005-1.025); UMIC TRIGGER UACC YES
[2025-02-17 05:12] LABS: Cannabinoid Screen Urine Not Detected (Not Detect)
[2025-02-17 05:21] LABS: UACC Culture Trigger YES
[2025-02-17] MEDS: Dextrose 5 % and 0.45 % NaCl 1,000 ML 100 ML IVCONT (06:40)
--- NOTE | 2025-02-17 07:00 | CA_ITS ---
Transthoracic Echocardiogram Patient (Last, First, Middle): Sj Cabrera, Gender: Male Date of : 1985 Age: 39 Procedure Date: 02/17/2025 Procedure Type: Transthoracic Echocardiogram Location[place] [facility] [place] Height: 182. cm Weight: 113.4 kg BSA: 2.33 m2 Heart Rate: 106 bpm BP: 146 / 86 mmHg Vest Busheler: JERRI Cabrera MD: Tami Nieves PA-C Masonry Contractor: Danial Harrison MD Symptoms: elevated trop Study Quality: Adequate ECG Rhythm: Sinus Conclusions: - 1. Normal LV ejection fraction 55-60% with grade 1 diastolic dysfunction 2. Normal cardiac valvular Dopplers 3. No gross pericardial effusion Findings Left Ventricle Normal left ventricular size, thickness, and systolic function. The visually estimated ejection fraction is between 55-60%. Regional wall motion abnormalities can not be excluded due to suboptimal endocardial definition. Spectral Doppler is indicative of an impaired relaxation filling pattern. E/E prime ratio is <8, consistent with normal filling pressures. Evidence suggests grade I (mild) diastolic dysfunction. Right Ventricle Normal right ventricular cavity size and systolic function. Atria The left atrium is normal in size. Interatrial shunt cannot be excluded. The right atrium was not well visualized. Aortic Valve The aortic valve structure and function is likely normal. There is no aortic valve stenosis. There is no aortic valve regurgitation. Mitral Valve Normal mitral valve structure and function. There is trace mitral valve regurgitation. There is no mitral valve stenosis. Pulmonic Valve The pulmonic valve was not well visualized. Tricuspid Valve The tricuspid valve was not well visualized. Tricuspid regurgitation envelope is inadequate for calculation of right ventricular systolic pressure. Indeterminate right atrial pressure. Great Vessels All visible segments of the aorta are normal in size. The pulmonary artery was not well visualized. Venous The inferior vena cava was not well visualized. Pericardium/Pleural There is no evidence of pericardial effusion. Prior Study Comparison No prior study available for comparison. Measurements 2D Linear Measurements IVSd: 1.06 0.6-0.9/0.6-1.0 cm LVIDd: 5.28 3.9-5.3/4.2-5.9 cm LVIDd Index: 2.27 2.4-3.2/2.2-3.1 cm/m2 LVIDs: 3.51 2.0-3.6 cm LVPWd: 1.18 0.7-1.1 cm LA Diam: 4.00 2.7-3.8/3.0-4.0 cm LAIDs Index: 1.72 1.5-2.3 cm/m2 LV Mass: 289.18 67-162/88-224 g LV Mass Index: 124.11 43-95/49-115 g/m2 LVOT Diam: 2.50 3.0+(-)1.3 cm 2D Systolic Function EF 4C: 58.00 >55% EF 2C: 53.20 >55% EF BiP: 56.30 >55% Mitral Valve MV Pk E: 0.66 MV PK A: 0.75 MV Decel Time: 251.00 E/A: 0.90 E'Lateral: 8.49 E'Medial: 4.90 E/E' Med: 13.50 E/E' Lat: 7.80 PHT: 73.00 MVA PHT: 3.01 Decel Traverse: 2.63 Aortic Valve AoV Pk Rich: 1.53 AoV Mn Rich: 1.06 AoV VTI: 0.26 AoV Pk Grad: 9.00 Aov Mn Grad: 5.00 YANDY Cont.VTI: 2.56 LVOT LVOT Pk Rich: 0.78 LVOT Mn Rich: 0.57 LVOT VTI: 0.13 LVOT Pk Grad: 2.00 LVOT Mn Grad: 1.00 LVOT Diam: 2.50 LVOT Area: 4.91 Diastolic Function MV Pk E: 0.66 MV Pk A: 0.75 E/A: 0.90 E'Medial: 4.90 E/E' Med: 13.50 E' Laterial: 8.49 E/E' Lat: 7.80 Right Ventricle TAPSE (mm): 17.00 TVS' Rich: 12.60 Great Vessels Aorta Sinus of Valsalva: 3.50 2.0-3.5 cm Ao Asc: 3.20 2.1-3.4 cm Ao Arch: 3.00 Pulmonary Valve PV Pk Rich: 1.29 Peak PV Grad: 7.00 Updated in Other Vendor System with Status of Final Danial Harrison MD electronically signed on 02/17/2025 3:19:48 PM with status of Final
--- NOTE | 2025-02-17 07:53 | PC.NURSE ---
patient is awake and alert, sat up and ate breakfast on the edge of the bed. patient has D51/2 NS running at 100ml/hr. patient denies pain, states he is feeling better this morning
--- NOTE | 2025-02-17 11:58 | HO.PM.IMPN ---
Subjective Subjective Date of Service: 02/17/25 Interval History: No significant nursing events since admission Constitutional Constitutional: Reports fatigue and Reports malaise Endocrine Endocrine: Reports fatigue Physical Exam Exam: Exam: Middle-aged male lying in bed in no distress Neck supple, no JVD Regular rate and rhythm, S1-S2 heard Regular breath sounds bilaterally, no wheezing or crackles appreciated Abdomen soft nontender, no guarding, no rigidity Patient is awake, alert and oriented x3 ; no focal motor deficit Psych: Normal mood No pedal edema Vital Signs: Vital Signs: Last Vital Signs Temp 97.9 F 02/17/25 11:13 Pulse 80 02/17/25 11:13 Resp 18 02/17/25 11:13 BP 126/67 02/17/25 11:13 Pulse Ox 96 02/17/25 11:13 O2 Del Method Room Air 02/17/25 11:13 BMI result Body Mass Index 38.2 Objective Data Active Medications Acetaminophen (Acetaminophen 325 Mg Tablet) 650 mg PO Q6H PRN PRN Reason: Pain, Mild 1-3,fever,headache Benztropine Mesylate (Benztropine Mesylate 0.5 Mg Tablet) 0.5 mg PO BID [facility] Last Admin: 02/17/25 09:39 Dose: 0.5 mg Documented By: YVONNE Calcium Carbonate (Calcium Carbonate 750 Mg Tab.Chew) 750 mg PO Q4H PRN PRN Reason: Heartburn Enoxaparin Sodium (Enoxaparin Sodium 40 Mg/0.4 Ml Syringe) 40 mg SUBCUT Q24H [facility] Last Admin: 02/16/25 20:39 Dose: Not Given Documented By: CRISTOPHER Non-Admin Reason: Patient Refused Lactated Ringer's (Lr) 1,000 mls @ 0 mls/hr IV .Q0M [facility] Dextrose/Sodium Chloride (D51/2ns) 1,000 mls @ 100 mls/hr IVCONT .Q10H [facility] Last Admin: 02/17/25 06:40 Dose: 100 mls/hr Documented By: CRISTOPHER Magnesium Hydroxide (Milk Of Magnesia 30 Ml Oral.Susp) 30 ml PO DAILY PRN PRN Reason: Constipation Melatonin (Melatonin 3 Mg Tablet) 6 mg PO BEDTIME PRN PRN Reason: Insomnia Oxycodone HCl (Oxycodone Hcl Immed Release 5 Mg Tablet) 5 mg PO Q6H PRN PRN Reason: Pain, Severe (Pain Scale 7-10) Sodium Chloride (0.9 % Sodium Chloride Flush 3 Ml Syringe) 3 ml IVFLUSH QSHIFT [facility] Last Admin: 02/17/25 07:17 Dose: Not Given Documented By: KEATON Non-Admin Reason: IV Running Trifluoperazine HCl (Trifluoperazine Hcl 5 Mg Tablet) 20 mg PO BEDTIME [facility] Labs 02/16/25 17:01 02/17/25 03:09 Labs: Laboratory Results - last 24 hr 02/16/25 02/16/25 02/17/25 17:01 21:53 03:09 MCV 85.4 MCH 29.8 MCHC 34.8 RDW 12.7 Plt Count 247 MPV 10.6 Immature Gran % (Auto) 1.2 H Neut % (Auto) 78.0 H Lymph % (Auto) 12.2 L Carlton % (Auto) 7.6 Eos % (Auto) 0.5 Baso % (Auto) 0.5 Lymph # (Auto) 2.4 Carlton # (Auto) 1.5 H Eos # (Auto) 0.1 Baso # (Auto) 0.1 Abs Immat Gran (auto) 0.23 H Absolute Neuts (auto) 15.1 H Absolute Nucleated RBC 0.000 Nucleated RBC % (auto) 0.0 Hold Purple Top SEE NOTE Anion Gap 18 16 13 Estim Creat Clear Calc 52.7 71.3 70.9 Estimated GFR 30 42 42 Random Glucose 149 H 122 H 112 Calcium 10.5 H 9.4 D 8.8 D Magnesium 2.3 2.4 Total Bilirubin 0.5 0.5 AST 53 H 69 H ALT 92 H 73 H Alkaline Phosphatase 133 H 111 Total Creatine Kinase 1041 H 4989 H Total Protein 8.1 H Albumin 5.2 H TSH Urine Color Urine Appearance Urine pH Ur Specific [place] Urine Protein Urine Glucose (UA) Urine Ketones Urine Blood Urine Nitrite Ur Leukocyte Esterase Urine RBC Urine WBC Ur Squamous Epith Cells Urine Bacteria Hyaline Casts Urine Yeast Urine Opiates Screen Ur Buprenorphine Scrn Ur Oxycodone Screen Urine Methadone Screen Urine Fentanyl Screen Ur Barbiturates Screen Ur Phencyclidine Scrn Ur Amphetamines Screen U Benzodiazepines Scrn Urine Cocaine Screen U Marijuana (THC) Screen Ethyl Alcohol < 10 Hepatitis A IgM Ab Nonreactive Hep Bs Antigen Negative Hep Bs Antibody GRAYZONE Hep B Core Total Ab Nonreactive Hepatitis C Ab (EIA) Nonreactive 02/17/25 02/17/25 02/17/25 03:09 04:54 04:55 MCV MCH MCHC RDW Plt Count MPV Immature Gran % (Auto) Neut % (Auto) Lymph % (Auto) Carlton % (Auto) Eos % (Auto) Baso % (Auto) Lymph # (Auto) Carlton # (Auto) Eos # (Auto) Baso # (Auto) Abs Immat Gran (auto) Absolute Neuts (auto) Absolute Nucleated RBC Nucleated RBC % (auto) Hold Purple Top Anion Gap Estim Creat Clear Calc Estimated GFR Random Glucose Calcium Magnesium Total Bilirubin AST ALT Alkaline Phosphatase Total Creatine Kinase Cancelled Total Protein 7.0 Albumin 4.3 TSH 2.25 Urine Color Dark Yellow Urine Appearance Clear Urine pH 5.5 Ur Specific [place] 1.025 Urine Protein 30 (1+) H Urine Glucose (UA) Negative Urine Ketones Trace Urine Blood Negative Urine Nitrite Negative Ur Leukocyte Esterase Trace H Urine RBC 0-2 Urine WBC 6-10 Ur Squamous Epith Cells 3-5 Urine Bacteria Trace Hyaline Casts 6-10 Urine Yeast Present Urine Opiates Screen Not Detected Ur Buprenorphine Scrn Not Detected Ur Oxycodone Screen Not Detected Urine Methadone Screen Not Detected Urine Fentanyl Screen Not Detected Ur Barbiturates Screen Not Detected Ur Phencyclidine Scrn Not Detected Ur Amphetamines Screen Not Detected U Benzodiazepines Scrn Not Detected Urine Cocaine Screen Not Detected U Marijuana (THC) Screen Not Detected Ethyl Alcohol Hepatitis A IgM Ab Hep Bs Antigen Hep Bs Antibody Hep B Core Total Ab Hepatitis C Ab (EIA) Assessment and Plan (1) Rhabdomyolysis: Status: Acute Plan This has a 39-year-old male with pertinent history of schizophrenia who was brought to the emergency department after being found on the ground at [facility] and admitted for FREIDA and rhabdomyolysis #. Acute kidney injury, prerenal: Unknown baseline. Improving with crystalloid resuscitation #. Rhabdomyolysis, exertional and traumatic: Continue IV crystalloid resuscitation. Repeat CK in a.m. #. 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 Patient is asymptomatic. Observation #. Schizophrenia: Continue home medications. CARE team eval #. Elevated liver enzymes due to rhabdo #. Leukocytosis, reactive Full code VTE prophy: lovenox Reason for continued hospitalization: IV crystalloid resuscitation, monitoring of kidney function Quality Stroke Does the patient have a stroke diagnosis?: No VTE Prior VTE?: No VTE Risk Level:: Medical - moderate - high VTE Device Contraindication: Treatment Not Indicated VTE Drug Contraindication: N/A - Med Ordered
--- NOTE | 2025-02-17 12:33 | MHC.CM.PN ---
IMM 02/17/25, Pt lives with his parents, his PCP is: [id number] Yung in [place] at [facility]. He does not use home health services or DME, he was at rehab at [facility] 1 yr ago, he could not say for what. He will need assistance with transport home at [place], DCP: home, with family. CM to follow for DC needs.
[2025-02-17] MEDS: Lactated Ringers 1,000 ML 125 ML IVCONT ×2 (14:24→21:16)
[2025-02-18 03:23] VITALS: BP 148/85; PULSE 54; RESP 18; TEMP 37.2; O2SAT 95
[2025-02-18] MEDS: Lactated Ringers 1,000 ML 125 ML IVCONT ×3 (05:41→20:37)
[2025-02-18 06:26] LABS: MANUAL DIFF FLAG NO
[2025-02-18 06:29] LABS: Hematocrit 40.8 % (42.0-52.0); Hemoglobin 14.0 g/dl (14.0-18.0); Imm Gran Abs Auto 0.07 X10*3/uL (0.00-0.03); Imm Gran Pct Auto 0.6 % (0.0-0.4); Lymphocytes Absolute Auto 2.8 X10*3/uL (1.2-4.9); Mean Corpuscular HGB Conc 34.3 g/dl (31.0-36.0); Mean Corpuscular Hemoglobin 29.2 pg (27.0-33.0); Mean Corpuscular Volume 85.0 fL (80.0-98.0); NRBC Abs Auto 0.000 X10*3/uL (0.0-0.012); NRBC Pct Auto 0.0 /100WBC (0.0-0.2); Platelet Count 198 X10*3/uL (160-400); Red Blood Count 4.80 X10*6/uL (4.60-5.80); White Blood Count 11.2 X10*3/uL (4.8-10.8)
[2025-02-18 06:45] LABS: Anion Gap 12 (12-20); Blood Urea Nitrogen 16 mg/dL (9-16); Calcium 8.5 mg/dL (8.4-10.2); Carbon Dioxide 24 mmol/L (22-29); Chloride 106 mmol/L (96-108); Creatinine Clr Calc Pharmacy 109.3; Estimated Glomerular Filt Rate > 60; Potassium 4.2 mmol/L (3.3-5.1); Sodium 138 mmol/L (135-145)
--- NOTE | 2025-02-18 06:50 | P.CDIM_ITS ---
PROVIDER RESPONSE TEXT: To clarify, the appropriate diagnosis supported by the clinical indicators: Obesity Due to excess calories QUERY TEXT: PHYSICIAN'S DOCUMENTATION REQUEST Date of Query: 02/18/2025 06:38 AM EDT Patient Name: Sj Cabrera Admit Date: 02/17/2025 Dear Esteban Da Silva MD, A review of the medical record indicates additional documentation may be needed. Please review below and update the documentation accordingly. Clinical Indicators: Height: 6ft Weight: 127.7kg BMI: 38.2 Other Clinical Notes Supporting Significance of the BMI: Nursing notes Height and Weight: Obese Class II If possible, please provide an associated diagnosis related to the abnormal BMI, such as: Overweight Obesity Due to excess calories Obesity Drug induced Obesity Due to other cause Specify the other cause Other (explain) Clinically unable to determine (explain) Thank you, Anjali Valencia, CCS, CDIS Use of terms such as suspected, likely, concern for, or probable (associated with a specific diagnosis that is being evaluated, monitored, or treated as if it exists) are acceptable and can be coded in the inpatient setting, when documented at the time of discharge. Please use your independent medical judgment in providing your response. THIS QUERY IS PART OF THE PERMANENT MEDICAL RECORD
[2025-02-18 07:16] VITALS: BP 133/93; PULSE 93; RESP 18; TEMP 37.2; O2SAT 95
[2025-02-18] MEDS: oxyCODONE HCl Immed Release 5 MG TABLET PO ×2 (07:23→13:34)
--- NOTE | 2025-02-18 09:57 | HO.PM.IMPN ---
Subjective Subjective Date of Service: 02/18/25 Interval History: No significant nursing events since admission. Reports improvement in symptoms. CK continues to be 4000 Constitutional Constitutional: Denies chills, Reports fatigue, Denies fever(s), Denies headache(s) and Reports malaise Eyes Eyes: Denies change in vision ENT Ears, Nose, Mouth, and Throat: Denies headache(s), Denies nasal congestion and Denies sore throat Cardiovascular Cardiovascular: Denies chest pain, Denies rapid heart rate, Denies leg edema, Denies lightheadedness and Denies dyspnea Respiratory Respiratory: Denies chest congestion, Denies cough, Denies dyspnea and Denies wheezing Gastrointestinal Gastrointestinal: Denies abdominal pain, Denies diarrhea, Denies nausea and Denies vomiting Genitourinary Genitourinary: Denies hematuria, Denies dysuria, Denies urinary frequency and Denies urinary urgency Musculoskeletal Musculoskeletal: Denies myalgias Integumentary/Breasts Skin/Breast: Denies rash Neurologic Neurologic: Denies confusion and Denies headache(s) Psychiatric Psychiatric: Denies confusion Endocrine Endocrine: Reports fatigue Hematologic/Lymphatic Hematologic/Lymphatic: Denies easy bleeding and Denies easy bruising Allergic/Immunologic Allergic/Immunologic: Denies wheezing Physical Exam Exam: Exam: Middle-aged male lying in bed in no distress Neck supple, no JVD Regular rate and rhythm, S1-S2 heard Regular breath sounds bilaterally, no wheezing or crackles appreciated Abdomen soft nontender, no guarding, no rigidity Patient is awake, alert and oriented x3 ; no focal motor deficit Psych: Normal mood No pedal edema Vital Signs: Vital Signs: Last Vital Signs Temp 98.9 F 02/18/25 07:16 Pulse 93 02/18/25 07:16 Resp 18 02/18/25 07:16 BP 133/93 H 02/18/25 07:16 Pulse Ox 95 02/18/25 07:16 O2 Del Method Room Air 02/18/25 07:16 BMI result Body Mass Index 38.2 Const: General: No confusion Orientation/consciousness: No confusion Neuro: General: No confusion Objective Data Active Medications Acetaminophen (Acetaminophen 325 Mg Tablet) 650 mg PO Q6H PRN PRN Reason: Pain, Mild 1-3,fever,headache Benztropine Mesylate (Benztropine Mesylate 0.5 Mg Tablet) 0.5 mg PO BID [facility] Last Admin: 02/18/25 07:23 Dose: 0.5 mg Documented By: CAIO Calcium Carbonate (Calcium Carbonate 750 Mg Tab.Chew) 750 mg PO Q4H PRN PRN Reason: Heartburn Enoxaparin Sodium (Enoxaparin Sodium 40 Mg/0.4 Ml Syringe) 40 mg SUBCUT Q24H [facility] Last Admin: 02/17/25 21:18 Dose: Not Given Documented By: DARRICK Non-Admin Reason: Patient Refused Lactated Ringer's (Lr) 1,000 mls @ 125 mls/hr IVCONT .Q8H [facility] Last Admin: 02/18/25 05:41 Dose: 125 mls/hr Documented By: DARRICK Magnesium Hydroxide (Milk Of Magnesia 30 Ml Oral.Susp) 30 ml PO DAILY PRN PRN Reason: Constipation Melatonin (Melatonin 3 Mg Tablet) 6 mg PO BEDTIME PRN PRN Reason: Insomnia Oxycodone HCl (Oxycodone Hcl Immed Release 5 Mg Tablet) 5 mg PO Q6H PRN PRN Reason: Pain, Severe (Pain Scale 7-10) Last Admin: 02/18/25 07:23 Dose: 5 mg Documented By: CAIO Sodium Chloride (0.9 % Sodium Chloride Flush 3 Ml Syringe) 3 ml IVFLUSH QSHIFT [facility] Last Admin: 02/18/25 07:23 Dose: Not Given Documented By: CAIO Non-Admin Reason: IV Running Trifluoperazine HCl (Trifluoperazine Hcl 5 Mg Tablet) 20 mg PO BEDTIME [facility] Last Admin: 02/17/25 21:13 Dose: 20 mg Documented By: DARRICK Labs 02/18/25 06:05 02/18/25 06:05 Labs: Laboratory Results - last 24 hr 02/18/25 06:05 MCV 85.0 MCH 29.2 MCHC 34.3 RDW 13.1 Plt Count 198 MPV 10.6 Immature Gran % (Auto) 0.6 H Neut % (Auto) 62.3 Lymph % (Auto) 24.6 [place] % (Auto) 10.7 Eos % (Auto) 1.4 Baso % (Auto) 0.4 Lymph # (Auto) 2.8 [place] # (Auto) 1.2 Eos # (Auto) 0.2 Baso # (Auto) 0.1 Abs Immat Gran (auto) 0.07 H Absolute Neuts (auto) 7.0 Absolute Nucleated RBC 0.000 Nucleated RBC % (auto) 0.0 Anion Gap 12 Estim Creat Clear Calc 109.3 Estimated GFR > 60 Random Glucose 97 Calcium 8.5 Total Creatine Kinase 4062 H Assessment and Plan (1) Rhabdomyolysis: Status: Acute Plan This has a 39-year-old male with pertinent history of schizophrenia who was brought to the emergency department after being found on the ground at [facility] and admitted for FREIDA and rhabdomyolysis #. Acute kidney injury, stage II: Resolved with crystalloid resuscitation #. Rhabdomyolysis, exertional and traumatic: Continue IV crystalloid resuscitation as CK continues to be high. Repeat CK in a.m. #. 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 Patient is asymptomatic. Observation #. Schizophrenia: Continue home medications. CARE team eval #. Elevated liver enzymes due to rhabdo #. Leukocytosis, reactive: Resolved Full code VTE prophy: lovenox Reason for continued hospitalization: IV crystalloid resuscitation, monitoring of CK Quality Stroke Does the patient have a stroke diagnosis?: No VTE Prior VTE?: No VTE Risk Level:: Medical - moderate - high VTE Device Contraindication: Treatment Not Indicated VTE Drug Contraindication: N/A - Med Ordered
[2025-02-18 11:41] VITALS: BP 140/90; PULSE 94; RESP 16; TEMP 37.2; O2SAT 94
[2025-02-18 15:06] VITALS: BP 155/81; PULSE 82; RESP 18; TEMP 36.8; O2SAT 96
[2025-02-18 19:49] VITALS: BP 137/71; PULSE 76; RESP 16; TEMP 36.8; O2SAT 96
[2025-02-18 23:36] VITALS: BP 156/73; PULSE 69; RESP 16; TEMP 36.9; O2SAT 97
[2025-02-19 03:41] VITALS: BP 130/80; PULSE 72; RESP 16; TEMP 36.7; O2SAT 97
[2025-02-19] MEDS: Lactated Ringers 1,000 ML 125 ML IVCONT (04:37)
[2025-02-19 07:14] LABS: Anion Gap 10 (12-20); Blood Urea Nitrogen 12 mg/dL (9-16); Calcium 8.6 mg/dL (8.4-10.2); Carbon Dioxide 27 mmol/L (22-29); Chloride 104 mmol/L (96-108); Creatinine Clr Calc Pharmacy 125.5; Estimated Glomerular Filt Rate > 60; Potassium 4.1 mmol/L (3.3-5.1); Sodium 137 mmol/L (135-145)
[2025-02-19 07:55] VITALS: BP 134/83; PULSE 75; RESP 17; TEMP 36.9; O2SAT 94
--- NOTE | 2025-02-19 10:29 | P.CNPS_ITS ---
History of Present Illness Date of Service: 02/19/2025 Chief Complaint: sherlyn Reason for Consult: Agitation Requesting physician: Esteban Da Silva Discussed with referring provider: Yes Sources of Information: patient interviewed and chart reviewed HPI Narrative: Patient is a 39-year-old male with a past history significant for schizophrenia, who presented to [facility] ED on 02/16/25 after being found on the ground at [facility]. The patient reports that he was feeling dizzy and lie down on the ground and was very agitated. He was admitted and has been medically cleared. On interview with this provider today, he notes that he return to [facility] form [place] and [place] standing up. His mental status was altered. He believed the fall and altered mental status were results of heat stroke, although he has been drinking adequate amount of fluids. He he is on Stelazine 20 mg at bedtime and benztropine 0.5 mg twice daily but ran out of both medications 2 weeks ago. His PCP manages his medications; however, he was not able to reach her for refills because his phone broke 2 weeks ago. He is trying to get a new phone. He denies agitation, hallucinations, or psychosis before after his recent symptoms. He currently denies SI/HI/AH/VH. He denies anxiety or depression. The plan is to continue current treatment regimen and contact his PCP for follow-up and medication management/refills. He notes that his mother will contact his PCP for medication refills. Past Psychiatric History: Possibly 1 prior psychiatric hospitalization Outpatient PCP Gabby Garcia prescribes patient's Stelazine Medical Evaluation Reviewed: Yes [facility] Medical History Schizophrenia Blindness Blindness Family History: Unknown Social History: Patient born in [facility]; primary language Solomon Islander but seems to speak and understand Slovak. Lives at home with his parents Moved to the [place] he was 13 years old History of traumatic injury to his eye when a teenager but surgeons saved his eye. Does construction work Has 2 brothers and 2 sisters Unmarried/no children Trauma History: Deferred Diagnostics Vital Signs (24Hr): Vital Signs - 24 hr 02/18/25 11:41 02/18/25 15:06 02/18/25 19:49 Temperature 98.9 F 98.3 F 98.3 F Pulse Rate 94 82 76 Respiratory Rate 16 18 16 Blood Pressure 140/90 H 155/81 H 137/71 Pulse Oximetry 94 96 96 Oxygen Delivery Method Room Air Room Air Room Air 02/18/25 23:36 02/19/25 03:41 02/19/25 07:55 Temperature 98.5 F 98.0 F 98.5 F Pulse Rate 69 72 75 Respiratory Rate 16 16 17 Blood Pressure 156/73 H 130/80 134/83 Pulse Oximetry 97 97 94 Oxygen Delivery Method Room Air Room Air Room Air BMI result Body Mass Index 38.2 Labs 02/18/25 06:05 02/19/25 06:15 Labs: Laboratory Results - last 48 hr 02/18/25 02/19/25 06:05 06:15 WBC 11.2 H RBC 4.80 Hgb 14.0 Hct 40.8 L MCV 85.0 MCH 29.2 MCHC 34.3 RDW 13.1 Plt Count 198 MPV 10.6 Immature Gran % (Auto) 0.6 H Neut % (Auto) 62.3 Lymph % (Auto) 24.6 [place] % (Auto) 10.7 Eos % (Auto) 1.4 Baso % (Auto) 0.4 Lymph # (Auto) 2.8 [place] # (Auto) 1.2 Eos # (Auto) 0.2 Baso # (Auto) 0.1 Abs Immat Gran (auto) 0.07 H Absolute Neuts (auto) 7.0 Absolute Nucleated RBC 0.000 Nucleated RBC % (auto) 0.0 Hold Purple Top SEE NOTE Sodium 138 137 Potassium 4.2 4.1 Chloride 106 104 Carbon Dioxide 24 27 Anion Gap 12 10 L BUN 16 12 Creatinine 1.24 1.08 Estim Creat Clear Calc 109.3 125.5 Estimated GFR > 60 > 60 Random Glucose 97 91 Calcium 8.5 8.6 Total Creatine Kinase 4062 H 3958 H Mental Status Exam Mental Status Exam Narrative: Appearance: Casually dressed, adequate hygiene Behavior: Calm and cooperative throughout the interview. Eye contact is appropriate, and there are no signs of psychomotor agitation or retardation Speech: Normal volume and prosody Thought process logical and goal-directed Thought content: Future oriented no self-harming thoughts Mood: Euthymic Affect: Full, mood-congruent SI:denies HI:denies VH/AH:none Delusions: None Insight/judgment: Fair insight and judgment Memory/cog: Alert, oriented x 4. grossly intact to conversational testing Medications Medications Current Medications Acetaminophen (Acetaminophen 325 Mg Tablet) 650 mg PO Q6H PRN PRN Reason: Pain, Mild 1-3,fever,headache Benztropine Mesylate (Benztropine Mesylate 0.5 Mg Tablet) 0.5 mg PO BID [facility] Last Admin: 02/19/25 08:40 Dose: 0.5 mg Calcium Carbonate (Calcium Carbonate 750 Mg Tab.Chew) 750 mg PO Q4H PRN PRN Reason: Heartburn Enoxaparin Sodium (Enoxaparin Sodium 40 Mg/0.4 Ml Syringe) 40 mg SUBCUT Q24H [facility] Last Admin: 02/18/25 20:02 Dose: Not Given Lactated Ringer's (Lr) 1,000 mls @ 125 mls/hr IVCONT .Q8H [facility] Last Admin: 02/19/25 04:37 Dose: 125 mls/hr Magnesium Hydroxide (Milk Of Magnesia 30 Ml Oral.Susp) 30 ml PO DAILY PRN PRN Reason: Constipation Melatonin (Melatonin 3 Mg Tablet) 6 mg PO BEDTIME PRN PRN Reason: Insomnia Oxycodone HCl (Oxycodone Hcl Immed Release 5 Mg Tablet) 5 mg PO Q6H PRN PRN Reason: Pain, Severe (Pain Scale 7-10) Last Admin: 02/18/25 13:34 Dose: 5 mg Sodium Chloride (0.9 % Sodium Chloride Flush 3 Ml Syringe) 3 ml IVFLUSH QSHIFT [facility] Last Admin: 02/19/25 08:40 Dose: Not Given Trifluoperazine HCl (Trifluoperazine Hcl 5 Mg Tablet) 20 mg PO BEDTIME [facility] Last Admin: 02/18/25 20:01 Dose: 20 mg Allergies Allergies Allergy/AdvReac Type Severity Reaction Status Date / Time No Known Allergies Allergy Verified 02/16/25 16:52 Assessment & Plan Total time managing care of this patient today ____ minutes. Patient educated on: therapeutic strategies
--- NOTE | 2025-02-19 10:42 | PM.DS ---
DS: Providers Provider Date of Service: 02/19/25 Date of admission: 02/16/25 20:16 Date of discharge: 02/19/25 Primary care physician: None Physician Consults: 02/16/25 20:19 Consult to Psychiatry Routine Consulting Provider: [facility] Psych Covering Reason for consultation: Agitation; hx Schizo DS: Diagnosis Discharge Diagnosis (1) Rhabdomyolysis: Status: Acute DS: Summary Hospital Course Hospital Course: HPI as per admiting provider: Patient is a 39-year-old male with a past history significant for schizophrenia, who presented to the ED after being found on the ground at [facility]. The patient reports that he was feeling dizzy and lie down on the ground and was very agitated. He feels that he may have had heat exhaustion. He states he did not fall or lose consciousness or have a head strike. 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 He reports that the latter started to twist and he feels sideways down on his right side of his chest onto the ladder. He has had pain since and has been taking ibuprofen for this. He currently denies any chest pain, shortness of breath, nausea, vomiting, abdominal pain or urinary symptoms. He is feeling better since arriving to the ED and receiving IV fluids. Hospital course: Patient was admitted with crystalloid resuscitation with resolution of FREIDA. Patient's creatine kinase [id number] after 3 days of IV crystalloid resuscitation. This has likely due to myopathy and not acute rhabdomyolysis as his CK is less than 5000 and did not improve with IV crystalloids despite resolution of FREIDA. Will need outpatient workup and close follow-up for myopathy. Patient with improvement of symptoms prior to discharge. Imaging revealed possible mesenteric panniculitis but patient is asymptomatic and no indication for treatment at this time. He does have underlying schizophrenia and Psychiatry team evaluated prior to admission. Patient had ran out of his home mood stabilizers and had not taken them for 2 weeks. Patient is hemodynamically stable to be discharged with a prescription for 30 day supply of benztropine and trifluoperazine Status at Discharge Functional status at discharge: independent ambulation Overall status at discharge: patient is back to baseline Time Attestation Discharge Coordination Time (in mins): Forty Quality: Safe Use of Opioids Does Pt have an Active Cancer Diagnosis on the Problem List?: No Quality: Stroke Does the patient have a stroke diagnosis?: No Physical Exam Exam: Exam: Middle-aged male lying in bed in no distress Neck supple, no JVD Regular rate and rhythm, S1-S2 heard Regular breath sounds bilaterally, no wheezing or crackles appreciated Abdomen soft nontender, no guarding, no rigidity Patient is awake, alert and oriented x3 ; no focal motor deficit Psych: Normal mood No pedal edema Vital Signs: Vital Signs: Last Vital Signs Temp 98.5 F 02/19/25 07:55 Pulse 75 02/19/25 07:55 Resp 17 02/19/25 07:55 BP 134/83 02/19/25 07:55 Pulse Ox 94 02/19/25 07:55 O2 Del Method Room Air 02/19/25 07:55 BMI result Body Mass Index 38.2 DS: Data Data Completed and Pending Labs on day of discharge: Laboratory Results - last 24 hr 02/19/25 06:15 Hold Purple Top SEE NOTE Sodium 137 Potassium 4.1 Chloride 104 Carbon Dioxide 27 Anion Gap 10 L BUN 12 Creatinine 1.08 Estim Creat Clear Calc 125.5 Estimated GFR > 60 Random Glucose 91 Calcium 8.6 Total Creatine Kinase [address] scan - abdomen: My impression: CT abdomen/pelvis: IMPRESSION: 1. Possible mesenteric panniculitis. 2. Partially imaged subacute appearing right-sided rib fractures, should be correlated clinically. 3. Nonobstructive less than 2 mm calculus left lower pole kidney. Chest x-ray: IMPRESSION: 1. No acute findings. Discharge Plan Discharge Anticipated Discharge Date/Time: 02/19/25 08:33 Patient Disposition: Home, Self-Care Discharge Diagnosis: Acute kidney injury Referrals: Physician,None [Primary Care Provider, Medical] - 1 Week Discharge Medications: Continued benztropine 0.5 mg tablet 0.5 mg PO BID 30 Days Qty: 180 0RF trifluoperazine 10 mg tablet 20 mg PO BEDTIME 30 Days Qty: 180 0RF Rx Instructions: Take 2 tablets nightly at bedtime. Discharge Orders: Discharge Order (Routine); Ordered 02/19/25 Ordered By: Esteban Da Silva Diet: Advance to usual diet Activity on Discharge: As tolerated Stand Alone Forms: Patient Portal Discharge page Print Language: Palestinian Care Plan Goals: Follow-up with PCP within 1 week for repeat CK and BMP Health Concerns: Elevated creatinine kinase Schizophrenia Plan of Treatment: Maintain adequate p.o. hydration Benztropine 0.5 mg b.i.d. and trifluoperazine 20 mg at bedtime Assessment: As above
--- NOTE | 2025-02-19 11:50 | MHC.CM.PN ---
Pt completed HCP form, naming his mother. He has been medically cleared to [place], he will go home via family transport, plan is self care.
== END 2025-02-19 13:16 | disposition home or self-care (01) | DRG 565 ==
LOC: HO.ED 19:54 → HO.EDOVER 20:30 → HO.IMC 02-17 07:31
PROVIDERS: Physician Assistant; Admitting Provider Hospitalist; Emergency Provider Emergency Medicine; Visit Provider Student in an Organized Health Care Education/Training Program
DX: T79.6XXA Traumatic ischemia of muscle, initial encounter (principal); K65.4 Sclerosing mesenteritis; S22.31XA Fracture of one rib, right side, initial encounter for closed fracture; N17.9 Acute kidney failure, unspecified; F20.9 Schizophrenia, unspecified; E86.0 Dehydration; W19.XXXA Unspecified fall, initial encounter; E66.09 Other obesity due to excess calories; Z68.38 Body mass index [BMI] 38.0-38.9, adult; Z71.3 Dietary counseling and surveillance; Z79.899 Other long term (current) drug therapy
CPT/HCPCS: 36415; 71045; 74176; 80048; 80053; 80307; 81001; 82550; 83735; 84443; 84484; 85025; 86704; 86706; 86709; 86803; 87086; 87147; 87340; 93005; 93306; 99285; J2405; J3360; J7120; Q9957

== ENCOUNTER → 2025-02-16 16:49 | Outpatient (BNV) | payer MEDICARE, MEDICAID, SELFPAY | PROVIDERS: Admitting Provider Hospitalist; Emergency Provider Emergency Medicine; Visit Provider Internal Medicine Cardiovascular Disease | DX: R42 Dizziness and giddiness (principal) | CPT/HCPCS: 93010 ==

== ENCOUNTER → 2025-02-16 17:55 | Outpatient (BNV) | payer MEDICARE, MEDICAID, SELFPAY | PROVIDERS: Emergency Provider Emergency Medicine; Visit Provider Radiology Diagnostic Radiology | DX: N20.0 Calculus of kidney (principal); R06.02 Shortness of breath | CPT/HCPCS: 71045; 74176 ==

== ENCOUNTER 2025-02-16 20:16 | Outpatient (BNV) | payer MEDICARE, MEDICAID, SELFPAY | END 2025-02-17 07:00 | PROVIDERS: Admitting Provider Hospitalist; Emergency Provider Emergency Medicine; Visit Provider Internal Medicine Cardiovascular Disease | DX: I51.89 Other ill-defined heart diseases (principal) | CPT/HCPCS: 93306 ==

== ENCOUNTER → 2025-02-16 20:16 | Outpatient (BNV) | payer MEDICARE, MEDICAID, SELFPAY | PROVIDERS: Admitting Provider Hospitalist; Emergency Provider Emergency Medicine; Visit Provider Nurse Practitioner Family | DX: F20.9 Schizophrenia, unspecified (principal) | CPT/HCPCS: 99222 ==

== ENCOUNTER → 2025-02-16 20:16 | Outpatient (BNV) | payer MEDICARE, MEDICAID, SELFPAY | PROVIDERS: Admitting Provider Hospitalist; Emergency Provider Emergency Medicine; Visit Provider Student in an Organized Health Care Education/Training Program | DX: M62.82 Rhabdomyolysis (principal); N17.9 Acute kidney failure, unspecified; S22.49XA Multiple fractures of ribs, unspecified side, initial encounter for closed fracture; R79.89 Other specified abnormal findings of blood chemistry; F20.9 Schizophrenia, unspecified; E66.811 Obesity, class 1 | CPT/HCPCS: 99223; 99232 ==